=== PATIENT | male | born 1995 | race American Indian/Alaskan Native ===

== ENCOUNTER 2019-11-24 11:00 | Emergency (ER) | payer MEDICARE, MEDICAID ==
[~2019-11-24] VITALS: Ht 175.3 cm; Wt 70.0 kg
[~2019-11-24 11:00] MED LIST: CLOB20TA PO; IBUP-1985 PO
[2019-11-24 11:08] VITALS: BP 111/64
[2019-11-24] MEDS ORDERED: SULF1TAB49 PO (11:26)
== END 2019-11-24 12:09 | disposition home or self-care (01) ==
LOC: ER 11:01
DX: L02.415 Cutaneous abscess of right lower limb (principal); Z86.69 Personal history of other diseases of the nervous system and sense organs; Z79.2 Long term (current) use of antibiotics; Z79.899 Other long term (current) drug therapy
CPT/HCPCS: 99283

== ENCOUNTER 2020-03-15 19:45 | Emergency (ER) | payer MEDICARE, MEDICAID ==
[~2020-03-15] VITALS: Ht 182.9 cm; Wt 75.5 kg
[2020-03-15] MEDS ORDERED: normal saline 1000ML IV soln IVB ONE (20:10)
[2020-03-15 20:32] LABS: BASOPHILS % (AUTO) 0.3 % (0-1); EOSINOPHILS % (AUTO) 0.5 % (0-6); HEMATOCRIT 40.8 % (42.0-52.0); HEMOGLOBIN 14.2 g/dl (14.0-17.9); LYMPHOCYTES # (AUTO) 1.6 X10'3 (1.1-4.8); LYMPHOCYTES % (AUTO) 35.4 % (21-51); MEAN CORPUSCULAR HEMOGLOBIN 33.2 PG (27.0-31.0); MEAN CORPUSCULAR HGB CONC 34.8 g/dL (33.0-36.5); MEAN CORPUSCULAR VOLUME 95.6 FL (78-98); MEAN PLATELET VOLUME 7.8 FL (7.4-10.4); MONOCYTES # (AUTO) 0.4 X10'3 (0-0.9); MONOCYTES % (AUTO) 8.6 % (2-12); NEUTROPHILS # (AUTO) 2.4 X10'3 (1.8-7.7); NEUTROPHILS % (AUTO) 55.2 % (42-75); PLATELET COUNT 180 X10'3 (140-440); RED BLOOD COUNT 4.27 X10'6 (4.70-6.10); RED CELL DISTRIBUTION WIDTH 13.4 % (11.5-14.5); WHITE BLOOD COUNT 4.4 X10'3 (4.5-11.0)
[2020-03-15 20:44] LABS: ALANINE AMINOTRANSFERASE 17 U/L (12-78); ALBUMIN 3.9 G/DL (3.4-5.0); ALBUMIN/GLOBULIN RATIO 1.1 (1.1-1.5); ALKALINE PHOSPHATASE 60 IU/L (46-116); ANION GAP 4 (8-16); ASPARTATE AMINO TRANSFERASE 11 U/L (10-37); BILIRUBIN,TOTAL 0.2 MG/DL (0.1-1.0); BLOOD UREA NITROGEN 16 MG/DL (7-18); BUN/CREATININE RATIO 13.7 (5.4-32.0); C-REACTIVE PROTEIN 0.07 MG/DL (0.0-0.5); CALCIUM 9.1 MG/DL (8.5-10.1); CHLORIDE 106 MMOL/L (99-107); CREATININE 1.17 MG/DL (0.60-1.10); ETHANOL < 0.010 GM/DL (0.0-0.010); GLUCOSE 89 MG/DL (70-104); POTASSIUM 4.2 MMOL/L (3.5-5.1); SODIUM 142 MMOL/L (135-145); TOTAL CARBON DIOXIDE 31.6 MMOL/L (24-32); TOTAL PROTEIN 7.4 G/DL (6.4-8.2); eGFR 77 ML/MIN
[2020-03-15 21:22] LABS: URINE AMPHETAMINE SCREEN NEGATIVE (Neg); URINE BARBITUATE SCREEN NEGATIVE (Neg); URINE BENZODIAZEPINES SCREEN POSITIVE (Neg); URINE CANNABINOID SCREEN NEGATIVE (Neg); URINE COCAINE SCREEN NEGATIVE (Neg); URINE METHADONE SCREEN NEGATIVE (Neg); URINE OPIATE SCREEN NEGATIVE (Neg); URINE PHENCYCLIDINE SCREEN NEGATIVE (Neg)
[2020-03-15 22:24] VITALS: BP 119/77
== END 2020-03-15 22:25 | disposition home or self-care (01) ==
LOC: ER 19:45
DX: R56.9 Unspecified convulsions (principal); F41.9 Anxiety disorder, unspecified; R53.1 Weakness; Z79.899 Other long term (current) drug therapy
CPT/HCPCS: 36415; 80053; 80305; 80320; 85025; 85651; 86140; 99283; J7030

== ENCOUNTER 2020-03-16 22:27 | Emergency (ER) | payer MEDICARE, MEDICAID ==
[~2020-03-16] VITALS: Ht 177.8 cm; Wt 75.0 kg
--- NOTE | 2020-03-16 23:18 | NUR ---
estephania [employer] [phone]
[2020-03-17] MEDS ORDERED: ondansetron 4mg rapidly disintigrating tab PO ONE (00:05)
--- NOTE | 2020-03-17 00:37 | NUR ---
SPOKE WITH Rico. HE IS WORKING ON A RIDE FOR THE PT. HE WILL SCHEDULE AN APPOINTMENT WITH [employer] NEUROLOGIST TO FOLLOW UP ON BREAK THROUGH SEIZURES
[2020-03-17 01:46] VITALS: BP 112/74
== END 2020-03-17 02:00 | disposition home or self-care (01) ==
LOC: ER 22:27
DX: R56.9 Unspecified convulsions (principal); F41.9 Anxiety disorder, unspecified; M54.2 Cervicalgia; M54.9 Dorsalgia, unspecified; Z79.899 Other long term (current) drug therapy
CPT/HCPCS: 36415; 70450; 72125; 72131; 80164; 93005; 99285

== ENCOUNTER 2020-04-09 11:00 | Emergency (ER) | payer MEDICARE, MEDICAID ==
[~2020-04-09] VITALS: Ht 175.3 cm; Wt 70.5 kg
[2020-04-09 11:12] VITALS: BP 109/68
--- NOTE | 2020-04-09 11:42 | NUR ---
tl best accompanying pt; remains bedside.
[2020-04-09] MEDS ORDERED: MUPI22OI30 TOP (11:53)
[2020-04-09] MEDS ORDERED: SULF1TAB49 PO (11:53)
== END 2020-04-09 12:23 | disposition home or self-care (01) ==
LOC: ER 11:00
DX: L98.9 Disorder of the skin and subcutaneous tissue, unspecified (principal); F41.9 Anxiety disorder, unspecified; Z86.69 Personal history of other diseases of the nervous system and sense organs; Z79.899 Other long term (current) drug therapy
CPT/HCPCS: 99283

== ENCOUNTER 2020-06-20 07:09 | Emergency (ER) | payer MEDICARE, MEDICAID ==
[~2020-06-20] VITALS: Ht 180.3 cm; Wt 73.1 kg
[2020-06-20 07:13] VITALS: BP 111/69
--- NOTE | 2020-06-20 07:48 | NUR ---
Ultrasound at bedside. Patient asked to provide urine sample after test.
[2020-06-20] MEDS ORDERED: acetaminophen 325mg tablet PO ONE (08:25)
[2020-06-20 08:31] LABS: CLARITY,URINE CLEAR (Clear); COLOR,URINE YELLOW (Yellow); GLUCOSE, URINE NEGATIVE (Neg); KETONES,URINE NEGATIVE (Neg); LEUKOCYTE ESTERASE ,URINE NEGATIVE (Neg); NITRITES, URINE NEGATIVE (Neg); OCCULT BLOOD,URINE NEGATIVE (Neg); PROTEIN,URINE NEGATIVE (Neg); UROBILINOGEN,URINE 0.2 E.U/dL (0.2-1.0)
[2020-06-20 08:34] LABS: UA COLLECTION TYPE VOIDED
== END 2020-06-20 08:54 | disposition home or self-care (01) ==
LOC: ER 07:10
DX: N50.811 Right testicular pain (principal); F41.9 Anxiety disorder, unspecified; Z86.69 Personal history of other diseases of the nervous system and sense organs; Z79.899 Other long term (current) drug therapy
CPT/HCPCS: 76870; 81003; 93976; 99284